=== PATIENT | male | born 1940 | race Caucasian/White ===

== ENCOUNTER 2018-10-07 09:33 | Inpatient (IN) | payer MEDICARE, MEDICAID ==
[~2018-10-07] VITALS: Ht 154.9 cm; Wt 64.0 kg
[2018-10-07 10:15] LABS: BASOPHILS % 0.3 % (0.0-2.0); EOSINOPHILS % 2.2 % (0.0-5.0); HEMATOCRIT. 47.7 % (42.0-52.0); HEMOGLOBIN. 16.1 g/dL (14.0-18.0); LYMPHOCYTES % 24.3 % (20.0-50.0); MEAN CORPUSCULAR HEMOGLOBIN 30.6 pg (28.0-32.0); MEAN CORPUSCULAR VOLUME 90.8 fL (80.0-94.0); MEAN PLATELET VOLUME 8.4 fl (7.4-10.4); MONOCYTES % 7.3 % (2.0-8.0); NEUTROPHILS % 65.9 % (40.0-76.0); PLATELET 133 x1000/uL (130-400); RED BLOOD CELL COUNT 5.26 mill/uL (4.7-6.1); RED CELL DISTRIBUTION WIDTH 15.2 % (11.6-14.6)
[2018-10-07 10:17] LABS: CHLORIDE 102 mEq/L (98-107)
[2018-10-07] MEDS ORDERED: METHYLPREDNISOLONE SOD SUCC 125 MG/2 ML VIAL IV SCH (10:40)
[2018-10-07] MEDS ORDERED: ALBUTEROL (0.083%) 2.5MG/3ML NEB HHN STA (10:40)
[2018-10-07] MEDS ORDERED: IPRATROPIUM BROMIDE (0.02%) 0.5MG/2.5ML NEB HHN SCH (10:40)
[2018-10-07] MEDS ORDERED: NITROGLYCERIN OINT 1GM/INCH UDPKT TD ONE (10:45)
[2018-10-07] MEDS ORDERED: NITROGLYCERIN 0.4MG TABLET SL SL PRN (10:45)
[2018-10-07] MEDS ORDERED: ASPIRIN 81MG TABLET PO ONE (10:45)
[2018-10-07] MEDS ORDERED: FUROSEMIDE 100MG/10ML VIAL IVP SCH (12:45)
[2018-10-07 14:15] VITALS: BP 134/74
[2018-10-07] MEDS: FUROSEMIDE 100MG/10ML VIAL IVP SCH ×2 (15:08→16:44)
[2018-10-07] MEDS ORDERED: ONDANSETRON HCL 4MG/2ML INJ IV PRN (15:15)
[2018-10-07] MEDS ORDERED: DEXTROSE 50% WATER 50ML SYRINGE IV PRN (15:15)
[2018-10-07] MEDS ORDERED: MAGNESIUM/ALUMINUM HYDROXIDE/SIMETHICONE 30ML UDC PO PRN (15:15)
[2018-10-07] MEDS ORDERED: DIPHENHYDRAMINE 50MG/ML VIAL IV PRN (15:15)
[2018-10-07] MEDS ORDERED: ACETAMINOPHEN 325MG TABLET PO PRN (15:15)
[2018-10-07] MEDS ORDERED: GUAIFENESIN 200MG/10ML SUGAR FREE UDC PO PRN (15:15)
[2018-10-07] MEDS ORDERED: TEMAZEPAM 15MG CAPSULE PO PRN (15:15)
[2018-10-07] MEDS ORDERED: IPRATROPIUM/ALBUTEROL 0.5-3(2.5)MG/3ML NEB INH PRN (15:15)
[2018-10-07] MEDS ORDERED: CLONIDINE 0.1MG TABLET PO PRN (15:15)
[2018-10-07 16:30] VITALS: BP 125/66
[2018-10-07] MEDS: BLOOD SUGAR DIAGNOSTIC STRIP TEST SCH ×2 (16:38→21:00)
[2018-10-07] MEDS: INSULIN LISPRO 100 UNITS/ML SUBCUT SCH ×2 (16:46→22:45)
[2018-10-07] MEDS ORDERED: ISOSORBIDE DINITRATE 20MG TABLET PO SCH (17:00)
[2018-10-07 17:24] LABS: *AMPHETAMINES SCREEN URINE NEGATIVE (NEGATIVE); *BARBITURATES SCREEN URINE NEGATIVE (NEGATIVE); *BENZODIAZEPINES SCREEN URINE NEGATIVE (NEGATIVE); *COCAINE SCREEN URINE NEGATIVE (NEGATIVE); METHADONE URINE SCREEN NEGATIVE (NEGATIVE); OPIATES URINE SCREEN NEGATIVE (NEGATIVE); PHENCYCLIDINE URINE SCREEN NEGATIVE (NEGATIVE)
[2018-10-07 17:25] LABS: CANNABINOID URINE SCREEN NEGATIVE (NEGATIVE)
[2018-10-07] MEDS ORDERED: ASPI-1158 PO (18:17)
[2018-10-07] MEDS ORDERED: LORA10TA7 MT (18:20)
[2018-10-07] MEDS ORDERED: ATOR40TA70 MT (18:21)
[2018-10-07] MEDS ORDERED: FURO40TA5 MT (18:22)
[2018-10-07] MEDS ORDERED: CLOP75TA33 MT (18:22)
[2018-10-07] MEDS ORDERED: ISOS60TA4 MT (18:23)
[2018-10-07] MEDS ORDERED: CARV3.1242 MT (18:23)
[2018-10-07] MEDS ORDERED: INSU100I24 SQ (18:24)
[2018-10-07 20:00] VITALS: BP 101/54
[2018-10-07] MEDS ORDERED: NITROGLYCERIN OINT 1GM/INCH UDPKT TD SCH (22:00)
[2018-10-07] MEDS ORDERED: INSULIN GLARGINE UD 100 UNITS/ML SYR SUBCUT SCH (22:00)
[2018-10-07] MEDS ORDERED: MORPHINE SULFATE 2 MG/ML CPJ (NOT FOR IM USE) IV PRN (22:00)
[2018-10-07] MEDS: CARVEDILOL 3.125 MG TABLET PO SCH (22:42)
[2018-10-07] MEDS: ATORVASTATIN CALCIUM 40MG TABLET PO SCH (22:42)
[2018-10-07] MEDS: AMLODIPINE 5MG TABLET PO SCH (22:43)
[2018-10-07] MEDS: ENOXAPARIN 30MG/0.3ML SYR SUBCUT SCH (22:47)
[2018-10-08] VITALS: BP 103/55
[2018-10-08 04:00] VITALS: BP 115/72
[2018-10-08 05:53] LABS: CHLORIDE 99 mEq/L (98-107)
[2018-10-08 06:00] LABS: BASOPHILS % 0.1 % (0.0-2.0); HEMATOCRIT. 42.6 % (42.0-52.0); HEMOGLOBIN. 14.5 g/dL (14.0-18.0); LYMPHOCYTES % 12.6 % (20.0-50.0); MEAN CORPUSCULAR HEMOGLOBIN 30.7 pg (28.0-32.0); MEAN CORPUSCULAR VOLUME 90.1 fL (80.0-94.0); MEAN PLATELET VOLUME 8.6 fl (7.4-10.4); MONOCYTES % 4.6 % (2.0-8.0); NEUTROPHILS % 82.7 % (40.0-76.0); PLATELET 133 x1000/uL (130-400); RED BLOOD CELL COUNT 4.72 mill/uL (4.7-6.1); RED CELL DISTRIBUTION WIDTH 15.2 % (11.6-14.6)
[2018-10-08] MEDS: INSULIN LISPRO 100 UNITS/ML SUBCUT SCH ×4 (06:53→22:31)
[2018-10-08] MEDS: BLOOD SUGAR DIAGNOSTIC STRIP TEST SCH ×4 (06:53→21:01)
[2018-10-08] MEDS: SODIUM CHLORIDE 0.9% INJ 3ML FLUSH IVF SCH ×4 (06:54→21:03)
[2018-10-08] MEDS: FUROSEMIDE 40MG/4ML VIAL IVP SCH ×2 (06:54→17:43)
[2018-10-08 08:00] VITALS: BP 100/58
[2018-10-08] MEDS: POTASSIUM CHLORIDE 20MEQ TABLET SR PO SCH (08:55)
[2018-10-08] MEDS: CLOPIDOGREL 75MG TABLET PO SCH (08:55)
[2018-10-08] MEDS: ASPIRIN 81MG EC TABLET PO SCH (08:56)
[2018-10-08] MEDS: ENOXAPARIN 30MG/0.3ML SYR SUBCUT SCH (08:56)
[2018-10-08] MEDS: LORATADINE 10MG TABLET PO SCH (08:56)
[2018-10-08] MEDS: LISINOPRIL 5MG TABLET PO SCH (09:00)
[2018-10-08] MEDS ORDERED: ASPIRIN 81MG EC TABLET PO SCH (09:00)
[2018-10-08] MEDS: AMLODIPINE 5MG TABLET PO SCH ×2 (09:00→21:01)
[2018-10-08] MEDS: CARVEDILOL 3.125 MG TABLET PO SCH ×2 (09:00→21:01)
[2018-10-08] MEDS: NITROGLYCERIN OINT 1GM/INCH UDPKT TD SCH ×2 (09:06→21:01)
[2018-10-08 12:00] VITALS: BP 106/58
[2018-10-08] MEDS ORDERED: IPRATROPIUM/ALBUTEROL 0.5-3(2.5)MG/3ML NEB HHN PRN (14:45)
[2018-10-08 16:00] VITALS: BP 112/54
[2018-10-08] MEDS: IPRATROPIUM/ALBUTEROL 0.5-3(2.5)MG/3ML NEB HHN SCH ×2 (16:01→20:52)
[2018-10-08 20:00] VITALS: BP 120/64
[2018-10-08] MEDS: ATORVASTATIN CALCIUM 40MG TABLET PO SCH (21:00)
[2018-10-08] MEDS: METHYLPREDNISOLONE SOD SUCC 125 MG/2 ML VIAL IV SCH (21:02)
[2018-10-08] MEDS ORDERED: INSULIN GLARGINE UD 100 UNITS/ML SYR SUBCUT SCH ×2 (22:00)
[2018-10-09] MEDS: IPRATROPIUM/ALBUTEROL 0.5-3(2.5)MG/3ML NEB HHN SCH ×2 (01:33→08:31)
[2018-10-09 04:00] VITALS: BP 117/68
[2018-10-09] MEDS: INSULIN LISPRO 100 UNITS/ML SUBCUT SCH ×2 (06:17→12:40)
[2018-10-09] MEDS: METHYLPREDNISOLONE SOD SUCC 125 MG/2 ML VIAL IV SCH (06:18)
[2018-10-09] MEDS: FUROSEMIDE 40MG/4ML VIAL IVP SCH (06:18)
[2018-10-09] MEDS: BLOOD SUGAR DIAGNOSTIC STRIP TEST SCH ×2 (06:18→11:45)
[2018-10-09] MEDS: SODIUM CHLORIDE 0.9% INJ 3ML FLUSH IVF SCH (06:18)
[2018-10-09 08:00] VITALS: BP 112/80
[2018-10-09 08:04] LABS: BASOPHILS % 0.1 % (0.0-2.0); HEMATOCRIT. 44.3 % (42.0-52.0); HEMOGLOBIN. 15.2 g/dL (14.0-18.0); LYMPHOCYTES % 10.4 % (20.0-50.0); MEAN CORPUSCULAR HEMOGLOBIN 30.8 pg (28.0-32.0); MEAN CORPUSCULAR VOLUME 89.6 fL (80.0-94.0); MEAN PLATELET VOLUME 8.8 fl (7.4-10.4); MONOCYTES % 1.7 % (2.0-8.0); NEUTROPHILS % 87.8 % (40.0-76.0); PLATELET 131 x1000/uL (130-400); RED BLOOD CELL COUNT 4.94 mill/uL (4.7-6.1); RED CELL DISTRIBUTION WIDTH 15.4 % (11.6-14.6)
[2018-10-09 08:19] LABS: CHLORIDE 102 mEq/L (98-107)
[2018-10-09] MEDS: LISINOPRIL 5MG TABLET PO SCH (08:40)
[2018-10-09] MEDS: POTASSIUM CHLORIDE 20MEQ TABLET SR PO SCH (08:40)
[2018-10-09] MEDS: CLOPIDOGREL 75MG TABLET PO SCH (08:41)
[2018-10-09] MEDS: NITROGLYCERIN OINT 1GM/INCH UDPKT TD SCH (08:41)
[2018-10-09] MEDS: CARVEDILOL 3.125 MG TABLET PO SCH (08:41)
[2018-10-09] MEDS: ASPIRIN 81MG EC TABLET PO SCH (08:41)
[2018-10-09] MEDS: AMLODIPINE 5MG TABLET PO SCH (08:48)
[2018-10-09] MEDS: LORATADINE 10MG TABLET PO SCH (08:48)
[2018-10-09] MEDS ORDERED: ENOXAPARIN 40MG/0.4ML SYR SUBCUT SCH (09:00)
[2018-10-09 12:00] VITALS: BP 112/52
[2018-10-09] MEDS ORDERED: FUROSEMIDE 40MG TABLET PO SCH (21:00)
== END 2018-10-09 12:50 | disposition home or self-care (01) | DRG 291 ==
LOC: ER 09:33 → 8WST 11:39 → EDBEDREQ 11:41 → ENRESERV 12:38
PROVIDERS: ADMIT Internal Medicine; ATTEND Internal Medicine
DX: I11.0 Hypertensive heart disease with heart failure (principal); J96.01 Acute respiratory failure with hypoxia; E11.9 Type 2 diabetes mellitus without complications; I50.43 Acute on chronic combined systolic (congestive) and diastolic (congestive) heart failure; I25.10 Atherosclerotic heart disease of native coronary artery without angina pectoris; I16.0 Hypertensive urgency; E78.00 Pure hypercholesterolemia, unspecified; D69.6 Thrombocytopenia, unspecified; I34.0 Nonrheumatic mitral (valve) insufficiency; E78.5 Hyperlipidemia, unspecified; I25.5 Ischemic cardiomyopathy; Z79.82 Long term (current) use of aspirin; Z79.899 Other long term (current) drug therapy; Z95.5 Presence of coronary angioplasty implant and graft; Z95.1 Presence of aortocoronary bypass graft; Z82.49 Family history of ischemic heart disease and other diseases of the circulatory system; Z79.4 Long term (current) use of insulin; I25.2 Old myocardial infarction; Z83.3 Family history of diabetes mellitus
CPT/HCPCS: 36415; 71045; 80048; 80305; 82962; 83036; 83880; 84484; 93005; 93306; 93970; 94640; 94644; 96374; 99285; J1650; J1815; J1940; J2270; J2930; J7611; J7620

== ENCOUNTER 2018-10-15 00:08 | Inpatient (IN) | payer MEDICARE, MEDICAID ==
[~2018-10-15] VITALS: Ht 154.9 cm; Wt 65.8 kg
[~2018-10-15 00:08] MED LIST: ASPI-1158 PO; ATOR40TA70 MT; CARV3.1242 MT; CLOP75TA33 MT; FURO40TA5 MT; INSU100I24 SQ; ISOS60TA4 MT; LORA10TA7 MT
[2018-10-15] MEDS ORDERED: NITROGLYCERIN 0.4MG TABLET SL SL PRN ×2 (00:45→08:45)
[2018-10-15] MEDS ORDERED: ASPIRIN 81MG TABLET PO ONE (00:45)
[2018-10-15 01:35] LABS: BASOPHILS % 0.2 % (0.0-2.0); EOSINOPHILS % 0.8 % (0.0-5.0); HEMATOCRIT. 44.5 % (42.0-52.0); HEMOGLOBIN. 15.3 g/dL (14.0-18.0); LYMPHOCYTES % 24.6 % (20.0-50.0); MEAN CORPUSCULAR HEMOGLOBIN 30.6 pg (28.0-32.0); MEAN CORPUSCULAR VOLUME 88.9 fL (80.0-94.0); MEAN PLATELET VOLUME 8.8 fl (7.4-10.4); NEUTROPHILS % 66.4 % (40.0-76.0); PLATELET 136 x1000/uL (130-400); RED BLOOD CELL COUNT 5.01 mill/uL (4.7-6.1); RED CELL DISTRIBUTION WIDTH 15.1 % (11.6-14.6)
[2018-10-15 01:37] LABS: CHLORIDE 95 mEq/L (98-107)
[2018-10-15] MEDS ORDERED: DOCUSATE SODIUM 100MG CAPSULE PO PRN (08:45)
[2018-10-15] MEDS ORDERED: MORPHINE SULFATE 2 MG/ML CPJ (NOT FOR IM USE) IV PRN (08:45)
[2018-10-15] MEDS ORDERED: ONDANSETRON HCL 4MG/2ML INJ IV PRN (08:45)
[2018-10-15] MEDS ORDERED: ZOLPIDEM TARTRATE 5MG TABLET PO PRN (08:45)
[2018-10-15] MEDS ORDERED: CLONIDINE 0.1MG TABLET PO PRN (08:45)
[2018-10-15] MEDS ORDERED: ACETAMINOPHEN 325MG TABLET PO PRN (08:45)
[2018-10-15] MEDS ORDERED: GUAIFENESIN 200MG/10ML SUGAR FREE UDC PO PRN (08:45)
[2018-10-15] MEDS ORDERED: IPRATROPIUM/ALBUTEROL 0.5-3(2.5)MG/3ML NEB INH PRN (08:45)
[2018-10-15] MEDS ORDERED: MAGNESIUM/ALUMINUM HYDROXIDE/SIMETHICONE 30ML UDC PO PRN (08:45)
[2018-10-15] MEDS ORDERED: DEXTROSE 50% WATER 50ML SYRINGE IV PRN (08:45)
[2018-10-15] MEDS: BLOOD SUGAR DIAGNOSTIC STRIP TEST SCH ×4 (09:00→21:20)
[2018-10-15] MEDS ORDERED: ASPIRIN 325MG EC TABLET PO SCH (09:00)
[2018-10-15 10:00] VITALS: BP 116/72
[2018-10-15] MEDS: CLOPIDOGREL 75MG TABLET PO SCH (10:20)
[2018-10-15] MEDS: FUROSEMIDE 20MG TABLET PO SCH (10:20)
[2018-10-15] MEDS: FAMOTIDINE 20MG TABLET PO SCH ×2 (10:20→21:19)
[2018-10-15] MEDS: ASPIRIN 81MG EC TABLET PO SCH (10:20)
[2018-10-15] MEDS: LISINOPRIL 5MG TABLET PO SCH ×2 (10:21→21:00)
[2018-10-15] MEDS: ENOXAPARIN 40MG/0.4ML SYR SUBCUT SCH (10:22)
[2018-10-15 10:35] VITALS: BP 116/72
[2018-10-15] MEDS ORDERED: ALBU18HF2 IH (11:16)
[2018-10-15] MEDS ORDERED: METF-415 MT (11:16)
[2018-10-15] MEDS ORDERED: BUDE6.9H INH (11:16)
[2018-10-15] MEDS ORDERED: INSU100I24 SQ ×2 (11:16)
[2018-10-15] MEDS ORDERED: PRED10TA MT (11:16)
[2018-10-15 12:00] VITALS: BP 121/69
[2018-10-15] MEDS: INSULIN LISPRO 100 UNITS/ML SUBCUT SCH ×3 (12:49→21:21)
[2018-10-15 16:00] VITALS: BP 118/63
[2018-10-15 17:20] LABS: CREATINE KINASE MB FRACTION 2.5 ng/mL (0.5-3.6)
[2018-10-15] MEDS: CARVEDILOL 3.125 MG TABLET PO SCH (17:40)
[2018-10-15 20:00] VITALS: BP 98/54
[2018-10-15] MEDS: ATORVASTATIN CALCIUM 40MG TABLET PO SCH (21:19)
[2018-10-15] MEDS: TRAMADOL 50MG TABLET PO PRN (21:56)
[2018-10-15] MEDS ORDERED: POTASSIUM CHLORIDE 20MEQ/PACKET PO NR (22:15)
[2018-10-15 23:28] LABS: *AMPHETAMINES SCREEN URINE NEGATIVE (NEGATIVE); *BARBITURATES SCREEN URINE NEGATIVE (NEGATIVE); *BENZODIAZEPINES SCREEN URINE NEGATIVE (NEGATIVE); *COCAINE SCREEN URINE NEGATIVE (NEGATIVE)
[2018-10-15 23:30] LABS: CANNABINOID URINE SCREEN NEGATIVE (NEGATIVE); METHADONE URINE SCREEN NEGATIVE (NEGATIVE); OPIATES URINE SCREEN NEGATIVE (NEGATIVE); PHENCYCLIDINE URINE SCREEN NEGATIVE (NEGATIVE)
[2018-10-15 23:52] LABS: CREATINE KINASE MB FRACTION 2.3 ng/mL (0.5-3.6)
[2018-10-16] VITALS: BP 104/64
[2018-10-16 04:00] VITALS: BP 97/60
[2018-10-16] MEDS: TRAMADOL 50MG TABLET PO PRN (05:49)
[2018-10-16] MEDS: BLOOD SUGAR DIAGNOSTIC STRIP TEST SCH ×4 (05:51→21:46)
[2018-10-16] MEDS: CARVEDILOL 3.125 MG TABLET PO SCH (05:51)
[2018-10-16] MEDS: INSULIN LISPRO 100 UNITS/ML SUBCUT SCH ×4 (06:34→21:00)
[2018-10-16 08:00] VITALS: BP 114/66
[2018-10-16] MEDS: LISINOPRIL 5MG TABLET PO SCH (08:39)
[2018-10-16] MEDS: ENOXAPARIN 40MG/0.4ML SYR SUBCUT SCH (08:39)
[2018-10-16] MEDS: FAMOTIDINE 20MG TABLET PO SCH ×2 (08:40→21:28)
[2018-10-16] MEDS: ASPIRIN 81MG EC TABLET PO SCH (08:41)
[2018-10-16] MEDS: CLOPIDOGREL 75MG TABLET PO SCH (08:41)
[2018-10-16] MEDS: FUROSEMIDE 20MG TABLET PO SCH (08:42)
[2018-10-16] MEDS ORDERED: REGADENOSON 0.4 MG/5 ML IV ONE (10:45)
[2018-10-16] MEDS ORDERED: FUROSEMIDE 40MG/4ML VIAL IVP SCH (10:45)
[2018-10-16] MEDS ORDERED: POTASSIUM CHLORIDE 20MEQ TABLET SR PO SCH (10:45)
[2018-10-16 12:00] VITALS: BP 115/67
[2018-10-16] MEDS: NITROGLYCERIN OINT 1GM/INCH UDPKT TD SCH ×2 (12:00→17:29)
[2018-10-16] MEDS: METOPROLOL TARTRATE 25MG TABLET PO SCH ×2 (12:01→21:28)
[2018-10-16 13:01] LABS: BASOPHILS % 0.2 % (0.0-2.0); EOSINOPHILS % 1.7 % (0.0-5.0); HEMATOCRIT. 51.8 % (42.0-52.0); HEMOGLOBIN. 17.5 g/dL (14.0-18.0); LYMPHOCYTES % 20.1 % (20.0-50.0); MEAN CORPUSCULAR HEMOGLOBIN 30.7 pg (28.0-32.0); MEAN CORPUSCULAR VOLUME 91.2 fL (80.0-94.0); MEAN PLATELET VOLUME 9.2 fl (7.4-10.4); MONOCYTES % 6.7 % (2.0-8.0); NEUTROPHILS % 71.3 % (40.0-76.0); PLATELET 144 x1000/uL (130-400); RED BLOOD CELL COUNT 5.69 mill/uL (4.7-6.1); RED CELL DISTRIBUTION WIDTH 15.6 % (11.6-14.6)
[2018-10-16 13:45] LABS: CHLORIDE 98 mEq/L (98-107)
[2018-10-16 13:55] LABS: CREATINE KINASE 188 IU/L (39-308)
[2018-10-16 13:57] LABS: CREATINE KINASE MB FRACTION 2.7 ng/mL (0.5-3.6)
[2018-10-16 16:00] VITALS: BP 109/58
[2018-10-16 20:00] VITALS: BP 117/67
[2018-10-16] MEDS: ATORVASTATIN CALCIUM 40MG TABLET PO SCH (21:28)
[2018-10-17] VITALS: BP 103/55
[2018-10-17 04:31] VITALS: BP 100/56
[2018-10-17 06:05] LABS: BASOPHILS % 0.3 % (0.0-2.0); EOSINOPHILS % 2.8 % (0.0-5.0); HEMATOCRIT. 47.8 % (42.0-52.0); HEMOGLOBIN. 16.6 g/dL (14.0-18.0); LYMPHOCYTES % 24.3 % (20.0-50.0); MEAN CORPUSCULAR HEMOGLOBIN 31.1 pg (28.0-32.0); MEAN CORPUSCULAR VOLUME 89.8 fL (80.0-94.0); MEAN PLATELET VOLUME 9.1 fl (7.4-10.4); NEUTROPHILS % 64.6 % (40.0-76.0); PLATELET 132 x1000/uL (130-400); RED BLOOD CELL COUNT 5.33 mill/uL (4.7-6.1); RED CELL DISTRIBUTION WIDTH 15.2 % (11.6-14.6)
[2018-10-17 06:50] LABS: CHLORIDE 100 mEq/L (98-107)
[2018-10-17] MEDS: NITROGLYCERIN OINT 1GM/INCH UDPKT TD SCH ×3 (06:57→12:00)
[2018-10-17] MEDS: INSULIN LISPRO 100 UNITS/ML SUBCUT SCH ×2 (06:58→13:17)
[2018-10-17] MEDS: BLOOD SUGAR DIAGNOSTIC STRIP TEST SCH ×2 (06:58→12:39)
[2018-10-17 07:10] LABS: CREATINE KINASE 173 IU/L (39-308); HDL CHOLESTEROL 41 mg/dL (40-59); LDL CHOLESTEROL 66 mg/dL (5-100)
[2018-10-17 08:00] VITALS: BP 106/63
[2018-10-17] MEDS: METOPROLOL TARTRATE 25MG TABLET PO SCH (09:00)
[2018-10-17] MEDS ORDERED: REGADENOSON 0.4 MG/5 ML IV ONE (09:15)
[2018-10-17] MEDS: ASPIRIN 81MG EC TABLET PO SCH (10:41)
[2018-10-17] MEDS: CLOPIDOGREL 75MG TABLET PO SCH (10:42)
[2018-10-17] MEDS: FAMOTIDINE 20MG TABLET PO SCH (10:44)
[2018-10-17 12:00] VITALS: BP 108/51
[2018-10-17 13:56] VITALS: BP 108/51
== END 2018-10-17 14:29 | disposition home health service (06) | DRG 292 ==
LOC: ER 00:08 → 5WST 04:36 → EDBEDREQ 04:42 → EDBEDREQTM 04:42 → ENRESERV 07:05 → SUPCPDRO 08:42
PROVIDERS: ADMIT Internal Medicine; ATTEND Internal Medicine
DX: I11.0 Hypertensive heart disease with heart failure (principal); E44.1 Mild protein-calorie malnutrition; I47.2 Ventricular tachycardia; R07.89 Other chest pain; I50.33 Acute on chronic diastolic (congestive) heart failure; E78.00 Pure hypercholesterolemia, unspecified; I34.0 Nonrheumatic mitral (valve) insufficiency; I49.3 Ventricular premature depolarization; D22.5 Melanocytic nevi of trunk; E11.9 Type 2 diabetes mellitus without complications; I25.10 Atherosclerotic heart disease of native coronary artery without angina pectoris; Z95.1 Presence of aortocoronary bypass graft; Z95.5 Presence of coronary angioplasty implant and graft; Z79.899 Other long term (current) drug therapy; Z79.02 Long term (current) use of antithrombotics/antiplatelets; Z68.27 Body mass index [BMI] 27.0-27.9, adult
CPT/HCPCS: 36415; 71045; 78452; 80061; 80305; 82550; 82553; 82962; 83036; 83735; 83880; 84443; 84484; 85379; 93005; 93017; 93306; 93880; 93970; 96374; 99285; A9500; J1650; J1815; J1940; J2785

== ENCOUNTER 2018-10-30 20:24 | Emergency (ER) | payer MEDICARE, MEDICAID ==
[~2018-10-30] VITALS: Ht 162.6 cm; Wt 82.0 kg
[~2018-10-30 20:24] MED LIST changes: +ALBU18HF2 IH; +BUDE6.9H INH; -CARV3.1242 MT; +METF-415 MT; +PRED10TA MT
[2018-10-30 21:21] LABS: BASOPHILS % 0.4 % (0.0-2.0); EOSINOPHILS % 1.8 % (0.0-5.0); HEMATOCRIT. 43.7 % (42.0-52.0); HEMOGLOBIN. 14.7 g/dL (14.0-18.0); MEAN CORPUSCULAR HEMOGLOBIN 30.3 pg (28.0-32.0); MEAN CORPUSCULAR VOLUME 89.9 fL (80.0-94.0); MEAN PLATELET VOLUME 8.3 fl (7.4-10.4); MONOCYTES % 8.8 % (2.0-8.0); PLATELET 123 x1000/uL (130-400); RED BLOOD CELL COUNT 4.86 mill/uL (4.7-6.1)
[2018-10-30 21:23] LABS: CHLORIDE 101 mEq/L (98-107)
[2018-10-30 23:22] VITALS: BP 115/57
== END 2018-10-30 23:40 | disposition home or self-care (01) ==
LOC: ER 20:24
DX: E11.649 Type 2 diabetes mellitus with hypoglycemia without coma (principal); I10 Essential (primary) hypertension; Z95.1 Presence of aortocoronary bypass graft; Z79.82 Long term (current) use of aspirin; Z79.4 Long term (current) use of insulin; Z79.899 Other long term (current) drug therapy
CPT/HCPCS: 36415; 71045; 82962; 83880; 84484; 93005; 99284

== ENCOUNTER 2018-11-01 07:11 | Inpatient (IN) | payer MEDICARE, MEDICAID ==
[~2018-11-01] VITALS: Ht 160 cm; Wt 64.0 kg
[2018-11-01] MEDS ORDERED: METO25TA6 MT (07:56)
[2018-11-01] MEDS ORDERED: LIDOCAINE HCL 1% 20ML VIAL (Pyxis) INJ ONE (07:59)
[2018-11-01] MEDS ORDERED: IODIXANOL 320MG/ML 100 ML BOTTLE IV ONE ×2 (07:59→09:10)
[2018-11-01] MEDS ORDERED: ASPIRIN/SOD BICARB/CITRIC ACID 324MG TAB EFF ONE (07:59)
[2018-11-01] MEDS ORDERED: NICARDIPINE 100MCG/ML 10ML VIAL (CATH LAB) IV ONE (08:06)
[2018-11-01] MEDS ORDERED: HEPARIN SODIUM 1,000 UNIT/1ML VIAL IV ONE (08:06)
[2018-11-01] MEDS ORDERED: ADENOSINE 12MCG/ML 10ML VIAL (CATH LAB) IV ONE (08:06)
[2018-11-01] MEDS ORDERED: NITROGLYCERIN 50MCG/ML 10ML VIAL (CATH LAB) IV ONE (08:06)
[2018-11-01 08:25] LABS: HEMATOCRIT 43.6 % (42.0-52.0); MEAN CORPUSCULAR HEMOGLOBIN 30.8 pg (28.0-32.0); MEAN CORPUSCULAR VOLUME 89.6 fL (80.0-94.0); PLATELET 132 x1000/uL (130-400); RED BLOOD CELL COUNT 4.86 mill/uL (4.7-6.1); RED CELL DISTRIBUTION WIDTH 15.2 % (11.6-14.6)
[2018-11-01] MEDS ORDERED: MIDAZOLAM HCL 2 MG/2 ML VIAL ONE (08:27)
[2018-11-01] MEDS ORDERED: FENTANYL CITRATE/PF 50MCG/ML 2ML VIAL ONE (08:28)
[2018-11-01] MEDS ORDERED: IOHEXOL-300 100 ML BOTTLE ONE (08:55)
[2018-11-01] MEDS ORDERED: ATROPINE SULFATE 1MG/10ML SYR IV PRN (09:45)
[2018-11-01] MEDS ORDERED: SODIUM CHLORIDE 0.45% 1,000 ML IV ONE (09:45)
[2018-11-01] MEDS ORDERED: ACETAMINOPHEN 325MG TABLET PO PRN (09:45)
[2018-11-01] MEDS ORDERED: MORPHINE SULFATE 2 MG/ML CPJ (NOT FOR IM USE) IV PRN (09:45)
[2018-11-01] MEDS ORDERED: CLOPIDOGREL 75MG TABLET PO ONE (09:45)
[2018-11-01] MEDS ORDERED: ONDANSETRON HCL 4MG/2ML INJ IV PRN (09:45)
[2018-11-01] MEDS ORDERED: DEXTROSE 50% WATER 50ML SYRINGE IV PRN (10:00)
[2018-11-01 10:27] VITALS: BP 127/66
[2018-11-01] MEDS: INSULIN LISPRO 100 UNITS/ML SUBCUT SCH ×3 (11:02→21:35)
[2018-11-01] MEDS: BLOOD SUGAR DIAGNOSTIC STRIP TEST SCH ×3 (11:02→21:37)
[2018-11-01 13:34] VITALS: BP 127/98
[2018-11-01 20:00] VITALS: BP 108/59
[2018-11-01] MEDS: METOPROLOL TARTRATE 25MG TABLET PO SCH (21:00)
[2018-11-01] MEDS: ATORVASTATIN CALCIUM 40MG TABLET PO SCH (21:33)
[2018-11-01 22:00] VITALS: BP 121/64
[2018-11-02] VITALS (13 sets, daily range): BP systolic 110–140; BP diastolic 63–80
[2018-11-02 07:00] LABS: BASOPHILS % 0.3 % (0.0-2.0); EOSINOPHILS % 4.9 % (0.0-5.0); HEMATOCRIT. 41.8 % (42.0-52.0); HEMOGLOBIN. 14.4 g/dL (14.0-18.0); LYMPHOCYTES % 30.1 % (20.0-50.0); MEAN CORPUSCULAR HEMOGLOBIN 30.7 pg (28.0-32.0); MEAN CORPUSCULAR VOLUME 89.6 fL (80.0-94.0); MEAN PLATELET VOLUME 8.6 fl (7.4-10.4); MONOCYTES % 9.1 % (2.0-8.0); NEUTROPHILS % 55.6 % (40.0-76.0); PLATELET 122 x1000/uL (130-400); RED BLOOD CELL COUNT 4.67 mill/uL (4.7-6.1); RED CELL DISTRIBUTION WIDTH 15.2 % (11.6-14.6)
[2018-11-02] MEDS: BLOOD SUGAR DIAGNOSTIC STRIP TEST SCH ×4 (07:01→21:00)
[2018-11-02] MEDS: INSULIN LISPRO 100 UNITS/ML SUBCUT SCH ×4 (07:01→22:07)
[2018-11-02 07:13] LABS: CHLORIDE 108 mEq/L (98-107)
[2018-11-02] MEDS: ASPIRIN 325MG TABLET PO SCH (07:37)
[2018-11-02] MEDS: CLOPIDOGREL 75MG TABLET PO SCH (07:37)
[2018-11-02] MEDS: METOPROLOL TARTRATE 25MG TABLET PO SCH ×2 (07:38→20:17)
[2018-11-02] MEDS: ATORVASTATIN CALCIUM 40MG TABLET PO SCH (20:15)
[2018-11-03] VITALS (8 sets, daily range): BP systolic 113–142; BP diastolic 60–80
[2018-11-03] MEDS: BLOOD SUGAR DIAGNOSTIC STRIP TEST SCH (06:45)
[2018-11-03] MEDS: INSULIN LISPRO 100 UNITS/ML SUBCUT SCH (06:45)
[2018-11-03 06:59] LABS: BASOPHILS % 0.3 % (0.0-2.0); HEMATOCRIT. 44.4 % (42.0-52.0); HEMOGLOBIN. 15.3 g/dL (14.0-18.0); LYMPHOCYTES % 27.3 % (20.0-50.0); MEAN CORPUSCULAR HEMOGLOBIN 30.9 pg (28.0-32.0); MEAN CORPUSCULAR VOLUME 89.6 fL (80.0-94.0); MEAN PLATELET VOLUME 8.8 fl (7.4-10.4); MONOCYTES % 9.8 % (2.0-8.0); NEUTROPHILS % 57.6 % (40.0-76.0); PLATELET 137 x1000/uL (130-400); RED BLOOD CELL COUNT 4.96 mill/uL (4.7-6.1); RED CELL DISTRIBUTION WIDTH 15.1 % (11.6-14.6)
[2018-11-03 07:01] LABS: CHLORIDE 107 mEq/L (98-107)
[2018-11-03] MEDS: CLOPIDOGREL 75MG TABLET PO SCH (08:57)
[2018-11-03] MEDS: ASPIRIN 325MG TABLET PO SCH (08:57)
[2018-11-03] MEDS: METOPROLOL TARTRATE 25MG TABLET PO SCH (08:58)
== END 2018-11-03 10:47 | disposition home or self-care (01) | DRG 247 ==
LOC: CCL 07:11 → 3WST 07:12
PROVIDERS: ADMIT Specialist; ATTEND Specialist
PROC: 4A023N7 Measurement of Cardiac Sampling and Pressure, Left Heart, Percutaneous Approach (ICD-10-PCS; principal; 2018-11-01)
PROC: 027034Z Dilation of Coronary Artery, One Artery with Drug-eluting Intraluminal Device, Percutaneous Approach (ICD-10-PCS; 2018-11-01)
PROC: B2181ZZ Fluoroscopy of Left Internal Mammary Bypass Graft using Low Osmolar Contrast (ICD-10-PCS; 2018-11-01)
PROC: B2121ZZ Fluoroscopy of Single Coronary Artery Bypass Graft using Low Osmolar Contrast (ICD-10-PCS; 2018-11-01)
PROC: B2151ZZ Fluoroscopy of Left Heart using Low Osmolar Contrast (ICD-10-PCS; 2018-11-01)
PROC: 4A033BC Measurement of Arterial Pressure, Coronary, Percutaneous Approach (ICD-10-PCS; 2018-11-01)
PROC: B2111ZZ Fluoroscopy of Multiple Coronary Arteries using Low Osmolar Contrast (ICD-10-PCS; 2018-11-01)
DX: I25.10 Atherosclerotic heart disease of native coronary artery without angina pectoris (principal); I10 Essential (primary) hypertension; I25.5 Ischemic cardiomyopathy; E11.9 Type 2 diabetes mellitus without complications; E78.00 Pure hypercholesterolemia, unspecified; I34.0 Nonrheumatic mitral (valve) insufficiency; M25.532 Pain in left wrist; Z95.5 Presence of coronary angioplasty implant and graft
CPT/HCPCS: 36415; 71045; 80048; 82962; 83880; 84484; 85027; 85347; 92937; 93005; 93306; 93459; 93571; 99284; C1769; C1874; C1887; C1893; J0153; J1644; J1815; J2250; J2270; J3010; J3490; Q9967